=== PATIENT | female | born 1990 | race Caucasian/White ===

== ENCOUNTER 2017-08-23 22:30 | Emergency (ER) | payer MEDICAID ==
[2017-08-23] MEDS ORDERED: ONDANSETRON HCL IV 4 MG/2 ML VIAL IV ONE (23:01)
[2017-08-23] MEDS ORDERED: 0.9 % SODIUM CHLORIDE 1,000 ML BAG IV ONE ×2 (23:01→23:41)
[2017-08-23 23:09] LABS: BASO % 0.2 % (0-6); EOS % 0.1 % (0-6); HEMATOCRIT 46.6 % (35.0-47.0); HEMOGLOBIN 16.2 gm/dl (11.6-16.0); LYMPH % 3.2 % (16-45); MEAN CELL VOLUME 87.1 fl (81-97); MEAN CORPUSCULAR HGB CONC 34.8 g/dl (32-36); MONO % 2.4 % (0-9); PLATELET COUNT 286 K/uL (130-400); RED BLOOD COUNT 5.35 M/uL (3.80-5.40); RED CELL DISTRIBUTION WIDTH 13.5 % (11.5-14.5); WHITE BLOOD COUNT W/O DIFF 16.4 K/uL (4.2-12.2)
[2017-08-23 23:10] LABS: MEAN CORPUSCULAR HEMOGLOBIN 30.2 pg (27-33)
[2017-08-23 23:20] LABS: BLOOD UREA NITROGEN 13 mg/dL (6-20)
[2017-08-23 23:21] LABS: CREATININE 0.6 mg/dL (0.5-0.9); EST GLOMERULAR FILTRATION RATE > 60 mL/min
[2017-08-23 23:23] LABS: GLUCOSE,RANDOM 149 mg/dL (74-109)
[2017-08-23 23:24] LABS: PLATELET ESTIMATE NORMAL (NORMAL)
[2017-08-23 23:26] LABS: ALB/GLOB RATIO 1.4 (1.1-1.8); ALBUMIN 5.3 g/dL (4.0-5.0); ALKALINE PHOSPHATASE 56 U/L (35-104); ALT/SGPT 204 U/L (<33); AST/SGOT 104 U/L (10.0-35.0); LIPASE 29 U/L (13-60)
[2017-08-24] MEDS ORDERED: KETOROLAC 30 MG/ML VIAL IVP ONE (00:20)
[2017-08-24 00:51] LABS: URINE APPEARANCE CLEAR; URINE BILIRUBIN NEGATIVE (NEGATIVE); URINE BLOOD NEGATIVE (NEGATIVE); URINE COLOR YELLOW; URINE GLUCOSE (UA) NEGATIVE (NEGATIVE); URINE KETONE 40 mg/dL (NEGATIVE); URINE LEUKOCYTE ESTERASE NEGATIVE (NEGATIVE); URINE NITRITE NEGATIVE (NEGATIVE); URINE PROTEIN NEGATIVE (NEGATIVE); URINE UROBILINOGEN 0.2 E.U./dL (0.20 - 1.00)
[2017-08-24 00:58] LABS: HCG,QUALITATIVE URINE NEGATIVE (NEGATIVE)
[2017-08-24] MEDS ORDERED: ONDANSETRON 4 MG ODT TABLET SL ONE (01:11)
--- NOTE | 2017-08-24 01:11 | Emergency Department Record ---
History of Present Illness - General Chief complaint: Nausea, Vomiting, Diarrhea Stated complaint: DEHYDRATED Time Seen by Provider: 08/23/17 22:50 Source: Patient Mode of Arrival: Ambulatory Limitations: No limitations - History of Present Illness Initial comments: pt has been vomiting and had diarrhea all day and feels like she is dehydrated complaint: Diarrhea, Nausea, Vomiting Onset/Timin -: Hour(s) Description of Vomiting: Other Description of Diarrhea: Water Associated Abdominal Pain: Yes Location: LLQ, RLQ, Flank Radiation: Back, Bilateral flank Severity: Moderate Severity scale (1-10): 3 Quality: Dull, Other Consistency: Constant Improves with: None Worsens with: None Associated Symptoms: Denies other symptoms - Related Data Home Medications Medication Instructions Recorded Confirmed Last Taken Amitriptyline HCl [Elavil] 10 mg PO DAILY 08/23/17 08/23/17 Unknown Etonogestrel [Nexplanon] 68 mg SQ DAILY 08/23/17 08/23/17 Unknown Allergies Allergy/AdvReac Type Severity Reaction Status Date / Time adalimumab [From Humira] Allergy SWELLING Verified 08/23/17 22:50 (GENERAL) etanercept [From Enbrel] Allergy SWELLING Verified 08/23/17 22:51 (GENERAL) Travel Screening - Travel/Exposure Within Last 30 Days Have you traveled within the last 30 days?: No - Travel/Exposure Within Last Year Have you traveled outside the [place] in the last year?: No - Additonal Travel Details Have you been exposed to anyone with a communicable illness?: No - Travel Symptoms Symptom Screening: None Review of Systems Reviewed: No additional complaints except as noted below Constitutional: Reports: As per HPI, Weakness. Denies: Chills, Fever, Malaise, Night sweats, Weight change Eyes: Reports: As per HPI. Denies: Eye discharge, Eye pain, Photophobia, Vision change ENT: Reports: As per HPI. Denies: Congestion, Dental pain, Ear pain, Epistaxis , Hearing loss, Throat pain Respiratory: Reports: As per HPI. Denies: Cough, Dyspnea, Hemoptysis, Stridor, Wheezes Cardiovascular: Reports: As per HPI. Denies: Arrhythmia, Chest pain, Dyspnea on exertion, Edema, Murmurs, Orthopnea, Palpitations, Paroxysmal nocturnal dyspnea, Rheumatic Fever, Syncope Endocrine: Reports: As per HPI. Denies: Fatigue, Heat or cold intolerance, Polydipsia, Polyuria Gastrointestinal: Reports: As per HPI, Diarrhea, Nausea, Vomiting. Denies: Abdominal pain, Constipation, Hematemesis, Hematochezia, Melena Genitourinary: Reports: As per HPI. Denies: Abnormal menses, Discharge, Dyspareunia, Dysuria, Frequency, Hematuria, Incontinence, Retention, Urgency Musculoskeletal: Reports: As per HPI. Denies: Arthralgia, Back pain, Gout, Joint swelling, Myalgia, Neck pain Skin: Reports: As per HPI. Denies: Bruising, Change in color, Change in hair/ nails, Lesions, Pruritus, Rash Neurological: Reports: As per HPI. Denies: Abnormal gait, Confusion, Headache, Numbness, Paresthesias, Seizure, Tingling, Tremors, Vertigo, Weakness Psychiatric: Reports: As per HPI. Denies: Anxiety, Auditory hallucinations, Depression, Homicidal thoughts, Suicidal thoughts, Visual hallucinations Hematological/Lymphatic: Reports: As per HPI. Denies: Anemia, Blood Clots, Easy bleeding, Easy bruising, Swollen glands Past Medical History - SOCIAL HISTORY Smoking Status: Former smoker Alcohol Use: Rare Drug Use: None - RESPIRATORY Hx Respiratory Disorders: No - CARDIOVASCULAR Hx Cardio Disorders: No - NEURO Hx Neuro Disorders: No - GI Hx GI Disorders: Yes Hx Liver Disease: Yes (FATTY LIVER STAGE 1) - Hx Genitourinary Disorders: No - ENDOCRINE Hx Endocrine Disorders: No - MUSCULOSKELETAL Hx Musculoskeletal Disorders: No - PSYCH Hx Psych Problems: Yes Hx Anxiety: Yes Hx Depression: Yes - HEMATOLOGY/ONCOLOGY Hx Hematology/Oncology Disorders: No Family Medical History Any Significant Family History?: No Hx Anxiety: Father, Brother/Sister, Grandparents Hx Cancer: Grandparents Hx Depression: Father, Brother/Sister Hx Diabetes: Grandparents Hx Heart Disease: Mother, Grandparents Hx HTN: Grandparents Physical Exam - General General Appearance: Alert, Oriented x3, Cooperative, Mild distress - Head Head exam: Normal inspection - Eye Eye exam: Normal appearance, PERRL, EOMI Pupils: Normal accommodation - ENT ENT exam: Normal exam, Mucous membranes dry, Normal external ear exam, Normal orophraynx Ear exam: Normal external inspection. negative: External canal tenderness Nasal Exam: Normal inspection. negative: Discharge, Sinus tenderness Mouth exam: Normal external inspection, Tongue normal Teeth exam: Normal inspection. negative: Dental caries Throat exam: Normal inspection. negative: Tonsillar erythema, Tonsillar exudate - Neck Neck exam: Normal inspection, Full ROM. negative: Tenderness - Respiratory Respiratory exam: Normal lung sounds bilaterally. negative: Respiratory distress - Cardiovascular Cardiovascular Exam: Normal rhythm, Normal heart sounds, Tachycardia - GI/Abdominal GI/Abdominal exam: Soft, Normal bowel sounds. negative: Tenderness - Rectal Rectal exam: Deferred - exam: Deferred - Extremities Extremities exam: Normal inspection, Full ROM, Normal capillary refill. negative: Tenderness - Back Back exam: Reports: Normal inspection, Full ROM. Denies: Muscle spasm, Rash noted, Tenderness - Neurological Neurological exam: Alert, CN II-XII intact, Normal gait, Oriented X3 - Psychiatric Psychiatric exam: Normal affect, Normal mood - Skin Skin exam: Dry, Intact, Normal color, Warm Course Vital Signs 08/23/17 08/23/17 08/24/17 22:44 23:19 00:15 Temperature 99.3 F Pulse Rate 130 H Pulse Rate [ 112 H 118 H Pulse Ox Probe] Respiratory 40 H 24 22 Rate Blood Pressure 85/62 Blood Pressure 118/70 128/77 [Right Arm] Pulse Ox 97 99 98 - Reevaluation(s) Reevaluation #1: 08/24/17 01:08 pt feels much better Medical Decision Making - Lab Data Result diagrams: 08/23/17 22:58 08/23/17 22:58 Lab Results 08/23/17 08/23/17 08/23/17 Range/Units 22:58 22:58 23:59 WBC 16.4 H (4.2-12.2) K/uL RBC 5.35 (3.80-5.40) M/uL Hgb 16.2 H (11.6-16.0) gm/dl Hct 46.6 (35.0-47.0) % MCV 87.1 (81-97) fl MCH 30.2 (27-33) pg MCHC 34.8 (32-36) g/dl RDW 13.5 (11.5-14.5) % Plt Count 286 (130-400) K/uL MPV 9.0 (7.4-10.4) fl Neutrophils % 94.0 H (47-80) % Lymphocytes % 3.2 L (16-45) % Monocytes % 2.4 (0-9) % Eosinophils % 0.1 (0-6) % Basophils % 0.2 (0-6) % Lymphocytes 4.0 L (16-45) % Monocytes 2.0 (0-9) % Platelet Estimate Normal (NORMAL) RBC Morphology Normal Sodium 137 (136-145) mmol/L Potassium 4.2 (3.4-4.5) mmol/L Chloride 100 (98-107) mmol/L Carbon Dioxide 16.0 L (22-29) mmol/L Anion Gap 21.0 H (7-16) BUN 13 (6-20) mg/dL Creatinine 0.6 (0.5-0.9) mg/dL Estimated GFR > 60 mL/min Random Glucose 149 H (74-109) mg/dL Calcium 9.9 (8.6-10.0) mg/dL Total Bilirubin 0.80 (0.2-1.0) mg/dL AST 104 H (10.0-35.0) U/L ALT 204 H (<33) U/L Alkaline Phosphatase 56 (35-104) U/L Total Protein 9.0 H (6.6-8.7) g/dL Albumin 5.3 H (4.0-5.0) g/dL Globulin 3.7 (1.4-4.8) gm/dL Albumin/Globulin Ratio 1.4 (1.1-1.8) Lipase 29 (13-60) U/L Urine Color Yellow Urine Appearance Clear Urine pH 5.5 (5.0-8.0) Ur Specific [place] >= 1.030 (1.002-1.030) Urine Protein Negative (NEGATIVE) Urine Glucose (UA) Negative (NEGATIVE) Urine Ketones 40 mg/dl H (NEGATIVE) Urine Blood Negative (NEGATIVE) Urine Nitrite Negative (NEGATIVE) Urine Bilirubin Negative (NEGATIVE) Urine Urobilinogen 0.2 (0.20 - 1.00) E.U./dL Ur Leukocyte Esterase Negative (NEGATIVE) Urine HCG, Qual Negative (NEGATIVE) Disposition Disposition: Discharge Clinical Impression: Dehydration, Elevated liver enzymes, Nausea vomiting and diarrhea Disposition: Home, Self-Care Condition: (1) Good Instructions: Acute Nausea and Vomiting (ED), Dehydration (ED) Additional Instructions: clear liquids next 12 hours. push fluids. have liver enzymes rechecked next week. return sooner if worse Quality - Blood Pressure Screening Does Patient Have Any of the Following: No Blood Pressure Classification: Normal BP Reading Systolic Measurement: 85 Diastolic Measurement: 62 Screening for High Blood Pressure: < Normal BP, F/U Not Required > [G6013]
== END 2017-08-24 01:18 | disposition home or self-care (01) ==
LOC: ER 22:30
DX: E86.0 Dehydration (principal); R94.5 Abnormal results of liver function studies; R11.2 Nausea with vomiting, unspecified; R19.7 Diarrhea, unspecified; Z87.891 Personal history of nicotine dependence
CPT/HCPCS: 99284 ×2; 96374; 96375; 96361; 83690; 80053; 81003; 81025; 85027; J1885; J2405; J7030